=== PATIENT | female | born 1985 | race Caucasian/White ===

== ENCOUNTER 2018-09-17 01:50 | Emergency (ER) | payer SELFPAY, OTHER | END 2018-09-17 04:30 | disposition left against medical advice (07) | LOC: FTE 01:50 | DX: Z53.21 Procedure and treatment not carried out due to patient leaving prior to being seen by health care provider (principal) ==

== ENCOUNTER 2019-06-17 19:55 | Emergency (ER) | payer OTHER ==
[2019-06-17] MEDS: ONDANSETRON (ODT) 4 MG TAB ODT (20:51)
[2019-06-17] MEDS: IBUPROFEN 800 MG TAB PO (20:52)
== END 2019-06-17 21:19 | disposition home or self-care (01) ==
LOC: FTE 19:55
DX: J02.9 Acute pharyngitis, unspecified (principal); F17.210 Nicotine dependence, cigarettes, uncomplicated; J32.9 Chronic sinusitis, unspecified
CPT/HCPCS: 99283; Z7610